=== PATIENT | female | born 1945 | race Caucasian/White ===

== ENCOUNTER 2024-05-08 16:02 | Emergency (ER) | payer MEDICARE, OTHER ==
[~2024-05-08] VITALS: Ht 172.7 cm; Wt 77.0 kg
[2024-05-08 18:56] LABS: Basophils # (auto) 0.1 10 ^3/uL (0-0.2); Basophils % (auto) 0.7 % (0.0-2.0); Eosinophils # (auto) 0 10 ^3/uL (0-0.8); Eosinophils % (auto) 0.1 % (0.0-7.0); Hematocrit 39.2 % (36.0-46.0); Hemoglobin 12.9 g/dL (12.2-16.2); Lymphocytes # (auto) 1.7 10 ^3/uL (0.4-5.4); Lymphocytes % (auto) 20.1 % (10.0-50.0); Mean Corpuscular Hemoglobin 29.5 pg (28.0-32.0); Mean Corpuscular Volume 89.3 fL (80.0-100.0); Monocytes # (auto) 0.4 10 ^3/uL (0-1.3); Monocytes % (auto) 4.4 % (0.0-12.0); Neutrophils # (auto) 6.3 10 ^3/uL (1.6-8.6); Neutrophils % (auto) 74.7 % (37.0-80.0); Nucleated Red Blood Cells % 0.1 %; Red Blood Cells 4.38 10^6/uL (4.0-5.20); Red Cell Distribution Width 19.9 % (11.8-14.3); White Blood Cell 8.4 10^3/uL (4.4-10.8)
[2024-05-08] MEDS: ACETAMINOPHEN 325 MG TAB PO ONE (19:13)
[2024-05-08 19:18] LABS: Alanine Aminotransferase 14 U/L (7-40); Alkaline Phosphatase 141 U/L (46-116); Anion Gap 11 (5-15); Aspartate Aminotransferase 31 U/L (13-40); BUN/Creatinine Ratio 17.8 (10.0-20.0); Bilirubin, Total 0.9 mg/dL (0.2-1.0); Blood Urea Nitrogen 21 mg/dL (9-23); Calcium 9.5 mg/dL (8.5-10.1); Carbon Dioxide 21 mmol/L (20-30); Chloride 104 mmol/L (98-107); Glucose 82 mg/dL (74-106); Potassium 4.7 mmol/L (3.5-5.1); Sodium 136 mmol/L (136-145); Total Protein 7.2 g/dL (5.7-8.2)
[2024-05-08 21:12] LABS: Urine Bacteria FEW /hpf (None Seen); Urine Blood TRACE /uL (Negative); Urine Budding Yeast LOADED /hpf (None Seen); Urine Clarity Turbid (Clear); Urine Color Yellow (Yellow); Urine Hyaline Cast MOD /lpf (0 - 2); Urine Mucus FEW (None Seen); Urine Protein, UAD 1+ (Negative); Urine Urobilinogen 2 mg/dL (Negative); Urine WBC 52 /hpf (0 - 5); Urine pH 6.5 (5.0-9.0)
[2024-05-08] MEDS ORDERED: NITR-52 PO (21:53)
[2024-05-08 23:15] VITALS: BP 110/62; PULSE 80; RESP 17; TEMP 98; O2SAT 95
== END 2024-05-08 23:29 | disposition home or self-care (01) ==
LOC: ER 16:02
DX: N39.0 Urinary tract infection, site not specified (principal); K80.20 Calculus of gallbladder without cholecystitis without obstruction; M13.852 Other specified arthritis, left hip; W18.09XA Striking against other object with subsequent fall, initial encounter; Y93.89 Activity, other specified; Y92.89 Other specified places as the place of occurrence of the external cause; Y99.8 Other external cause status
CPT/HCPCS: 36415; 70450; 74176; 80053; 81001; 82962; 85025

== ENCOUNTER 2024-06-29 17:42 | Inpatient (IN) | payer MEDICARE, OTHER ==
[~2024-06-29] VITALS: Ht 170.2 cm; Wt 71.6 kg
[~2024-06-29 17:42] MED LIST: NITR-52 PO
[2024-06-29 19:03] LABS: Basophils # (auto) 0 10 ^3/uL (0-0.2); Basophils % (auto) 0.4 % (0.0-2.0); Eosinophils # (auto) 0 10 ^3/uL (0-0.8); Eosinophils % (auto) 0.2 % (0.0-7.0); Hematocrit 31.3 % (36.0-46.0); Hemoglobin 10.3 g/dL (12.2-16.2); Lymphocytes # (auto) 0.7 10 ^3/uL (0.4-5.4); Lymphocytes % (auto) 7.5 % (10.0-50.0); Mean Corpuscular Hemoglobin 33.1 pg (28.0-32.0); Mean Corpuscular Hgb Conc. 33.1 g/dL (32.0-36.0); Monocytes # (auto) 0.4 10 ^3/uL (0-1.3); Neutrophils # (auto) 8.6 10 ^3/uL (1.6-8.6); Neutrophils % (auto) 87.9 % (37.0-80.0); Nucleated Red Blood Cells % 0.5 %; Platelet Count (auto) 153 10^3/uL (140-450); Red Blood Cells 3.13 10^6/uL (4.0-5.20); White Blood Cell 9.7 10^3/uL (4.4-10.8)
[2024-06-29 19:11] LABS: Red Cell Distribution Width 21.6 % (11.8-14.3)
[2024-06-29 19:14] LABS: Anion Gap 12 (5-15); Carbon Dioxide 19 mmol/L (20-30); Chloride 108 mmol/L (98-107); Potassium 5.4 mmol/L (3.5-5.1); Sodium 139 mmol/L (136-145)
[2024-06-29 19:15] LABS: Calcium 8.3 mg/dL (8.7-10.4)
[2024-06-29 19:20] LABS: BUN/Creatinine Ratio 21.2 (10.0-20.0); Blood Urea Nitrogen 22 mg/dL (9-23); Glucose 84 mg/dL (74-106)
[2024-06-29 21:32] VITALS: PULSE 86; RESP 99; O2SAT 99
[2024-06-29 23:10] VITALS: PULSE 81; RESP 13; O2SAT 100
[2024-06-29] MEDS ORDERED: HYDROcodone-ACET 5/325MG TAB PO PRN (23:15)
[2024-06-29] MEDS ORDERED: DEXTROSE (50%) 50ML SYRG IV PRN (23:15)
[2024-06-29] MEDS ORDERED: DOCUSATE SOD 100 MG CAP PO PRN (23:15)
[2024-06-29] MEDS ORDERED: ONDANSETRON HCL 4 MG/2 ML VIAL IV PRN (23:15)
[2024-06-29] MEDS ORDERED: ACETAMINOPHEN 325 MG TAB PO PRN (23:15)
[2024-06-29] MEDS: DEXTROSE (50%) 50ML SYRG IV ONE (23:21)
[2024-06-29] MEDS: CALCIUM GLUC 1,000mg/50ml-NS 50 ML IV SCH (23:21)
[2024-06-29] MEDS: SODIUM BICARB 8.4% 50Meq/50ml SYR Vial IV ONE (23:21)
[2024-06-29] MEDS: FUROSEMIDE 20 MG/2 ML VIAL IV ONE (23:23)
[2024-06-29] MEDS: InsuLIN REG 1unit/0.01ml Soln (100units/ml) IV ONE (23:23)
[2024-06-29] MEDS ORDERED: NITROGLYCERIN 0.4 MG SL TAB SL PRN (23:45)
[2024-06-29] MEDS ORDERED: MORPHINE SULFATE INJ 2 MG/ml SYRG IV PRN (23:45)
[2024-06-30] VITALS (7 sets, daily range): BP systolic 111–138; BP diastolic 58–67; PULSE 74–86; RESP 14–22; TEMP 97.6–98.1; O2SAT 2–99
[2024-06-30] MEDS: CALCIUM GLUC 1,000mg/50ml-NS 50 ML IV ONE (00:09)
[2024-06-30 01:41] LABS: Urine Bacteria FEW /hpf (None Seen); Urine Blood Negative /uL (Negative); Urine Clarity Clear (Clear); Urine Color Light-Yellow (Yellow); Urine Protein, UAD Negative (Negative); Urine Specific Gravity 1.016 (1.001-1.035); Urine Urobilinogen Normal (Negative); Urine WBC 10 /hpf (0 - 5)
[2024-06-30] MEDS ORDERED: OXYC-998 PO (02:57)
[2024-06-30] MEDS ORDERED: ZOLP5TAB5 PO (02:57)
[2024-06-30] MEDS ORDERED: ATOR10TA52 PO (02:57)
[2024-06-30] MEDS ORDERED: ONDA-188 PO (02:57)
[2024-06-30] MEDS ORDERED: MET50T PO (02:57)
[2024-06-30] MEDS ORDERED: AMLO1TAB21 PO (02:57)
[2024-06-30] MEDS ORDERED: ASPI81CH59 PO (02:57)
[2024-06-30] MEDS ORDERED: ALPR0.255 PO (02:57)
[2024-06-30] MEDS ORDERED: MIRT1TAB15 PO (02:57)
[2024-06-30] MEDS ORDERED: GLUC-149 (02:57)
[2024-06-30] MEDS ORDERED: ESCI1TAB36 PO (02:57)
[2024-06-30] MEDS ORDERED: METF-370 PO (02:58)
[2024-06-30] MEDS: InsuLIN REG 1unit/0.01ml Soln (100units/ml) SC SCH (06:13)
[2024-06-30] MEDS: SODIUM CHLOR 0.9% PF (SALINE LOCK) 10ML VIAL/SYR IV SCH (06:14)
[2024-06-30] MEDS: ACCU-CHEK COMFORT CURVE STRIP VI SCH (06:14)
[2024-06-30 06:30] LABS: Eosinophils # (auto) 0 10 ^3/uL (0-0.8); Monocytes # (auto) 0.5 10 ^3/uL (0-1.3); Nucleated Red Blood Cells % 0.5 %
[2024-06-30 06:34] LABS: Basophils # (auto) 0 10 ^3/uL (0-0.2); Basophils % (auto) 0.4 % (0.0-2.0); Eosinophils % (auto) 0.1 % (0.0-7.0); Hematocrit 28.5 % (36.0-46.0); Hemoglobin 9.6 g/dL (12.2-16.2); Lymphocytes # (auto) 0.7 10 ^3/uL (0.4-5.4); Lymphocytes % (auto) 8.5 % (10.0-50.0); Mean Corpuscular Hemoglobin 34.1 pg (28.0-32.0); Mean Corpuscular Hgb Conc. 33.5 g/dL (32.0-36.0); Mean Corpuscular Volume 101.8 fL (80.0-100.0); Monocytes % (auto) 5.9 % (0.0-12.0); Neutrophils # (auto) 6.8 10 ^3/uL (1.6-8.6); Neutrophils % (auto) 85.1 % (37.0-80.0); Platelet Count (auto) 140 10^3/uL (140-450); Red Cell Distribution Width 21.6 % (11.8-14.3)
[2024-06-30 06:52] LABS: Alanine Aminotransferase 11 U/L (7-40); Albumin 2.8 g/dL (3.2-4.8); Alkaline Phosphatase 108 U/L (46-116); Anion Gap 16 (5-15); Aspartate Aminotransferase 30 U/L (13-40); BUN/Creatinine Ratio 17.4 (10.0-20.0); Bilirubin, Total 0.5 mg/dL (0.2-1.0); Blood Urea Nitrogen 15 mg/dL (9-23); Calcium 8.5 mg/dL (8.7-10.4); Carbon Dioxide 18 mmol/L (20-30); Chloride 106 mmol/L (98-107); Glucose 67 mg/dL (74-106); Potassium 4.1 mmol/L (3.5-5.1); Sodium 140 mmol/L (136-145); Total Protein 4.9 g/dL (5.7-8.2)
[2024-06-30] MEDS: FUROSEMIDE 20 MG/2 ML VIAL IV SCH (09:33)
[2024-06-30] MEDS: ASPirin 81 mg TAB PO SCH (09:34)
[2024-06-30] MEDS: CARVEDILOL 3.125 MG TAB PO SCH (09:34)
[2024-06-30] MEDS ORDERED: FURO1TAB33 PO (15:11)
[2024-06-30] MEDS ORDERED: ATORVASTATIN 20 MG TAB PO SCH (22:00)
[2024-07-02 08:42] LABS: Hepatitis B Surface Antigen Negative (Negative)
[2024-07-02 09:07] LABS: Hepatitis C Antibody Negative (Negative)
== END 2024-06-30 19:20 | disposition home or self-care (01) | DRG 291 ==
LOC: ER 17:45 → TELE 23:35 → TELE-CENTR 06-30 01:55
PROVIDERS: ADMIT Nurse Practitioner Family; ATTEND Nurse Practitioner Family
DX: I11.0 Hypertensive heart disease with heart failure (principal); I50.31 Acute diastolic (congestive) heart failure; E87.70 Fluid overload, unspecified; E78.5 Hyperlipidemia, unspecified; E11.9 Type 2 diabetes mellitus without complications; E87.5 Hyperkalemia; D53.9 Nutritional anemia, unspecified; Z95.2 Presence of prosthetic heart valve
CPT/HCPCS: 36415; 71046; 80048; 80053; 81001; 82962; 83880; 84484; 85025; 86803; 87086; 87340; 93005; 93306; G0378; J1815

== ENCOUNTER 2024-07-01 17:15 | Inpatient (IN) | payer MEDICARE, OTHER ==
[~2024-07-01] VITALS: Ht 165.1 cm; Wt 93.1 kg
[~2024-07-01 17:15] MED LIST changes: +ALPR0.255 PO; +AMLO1TAB21 PO; +ASPI81CH59 PO; +ATOR10TA52 PO; +ESCI1TAB36 PO; +FURO1TAB33 PO; +GLUC-149; +MET50T PO; +METF-370 PO; +MIRT1TAB15 PO; +ONDA-188 PO; +OXYC-998 PO; +ZOLP5TAB5 PO
[2024-07-01 17:40] VITALS: PULSE 74; RESP 18; O2SAT 98
[2024-07-01] MEDS: SODIUM CHLORIDE 0.9% 1,000 ML IV ONE ×2 (17:44→19:40)
[2024-07-01 18:00] LABS: Basophils # (auto) 0 10 ^3/uL (0-0.2); Basophils % (auto) 0.3 % (0.0-2.0); Eosinophils # (auto) 0 10 ^3/uL (0-0.8); Eosinophils % (auto) 0.1 % (0.0-7.0); Hematocrit 32.4 % (36.0-46.0); Hemoglobin 9.9 g/dL (12.2-16.2); Lymphocytes # (auto) 1.4 10 ^3/uL (0.4-5.4); Lymphocytes % (auto) 14.7 % (10.0-50.0); Mean Corpuscular Hemoglobin 33.2 pg (28.0-32.0); Mean Corpuscular Hgb Conc. 30.5 g/dL (32.0-36.0); Mean Corpuscular Volume 108.7 fL (80.0-100.0); Monocytes # (auto) 0.5 10 ^3/uL (0-1.3); Monocytes % (auto) 5.7 % (0.0-12.0); Neutrophils # (auto) 7.6 10 ^3/uL (1.6-8.6); Neutrophils % (auto) 79.2 % (37.0-80.0); Nucleated Red Blood Cells % 0.5 %; Platelet Count (auto) 126 10^3/uL (140-450); Red Blood Cells 2.97 10^6/uL (4.0-5.20); White Blood Cell 9.5 10^3/uL (4.4-10.8)
[2024-07-01 18:02] LABS: Red Cell Distribution Width 22.7 % (11.8-14.3)
[2024-07-01 18:07] LABS: Chloride 110 mmol/L (98-107); Potassium 4.8 mmol/L (3.5-5.1); Sodium 141 mmol/L (136-145)
[2024-07-01 18:08] LABS: Anion Gap 17 (5-15); Calcium 7.6 mg/dL (8.7-10.4); Carbon Dioxide 14 mmol/L (20-30)
[2024-07-01 18:13] LABS: Blood Urea Nitrogen 22 mg/dL (9-23); Glucose 95 mg/dL (74-106)
[2024-07-01 18:32] LABS: Lactic Acid w/Reflex 6.5 mmol/L (0.4-2.0)
[2024-07-01 19:03] LABS: Base Excess -8.8 mmol/L (-2.0-2.0)
[2024-07-01 19:59] LABS: Basophils # (auto) 0 10 ^3/uL (0-0.2); Basophils % (auto) 0.2 % (0.0-2.0); Eosinophils # (auto) 0 10 ^3/uL (0-0.8); Eosinophils % (auto) 0.1 % (0.0-7.0); Hemoglobin 9.5 g/dL (12.2-16.2); Monocytes # (auto) 0.4 10 ^3/uL (0-1.3); Neutrophils # (auto) 7.9 10 ^3/uL (1.6-8.6); Nucleated Red Blood Cells % 0.3 %
[2024-07-01 20:01] LABS: Hematocrit 29.6 % (36.0-46.0); Lymphocytes # (auto) 1.2 10 ^3/uL (0.4-5.4); Lymphocytes % (auto) 12.8 % (10.0-50.0); Mean Corpuscular Hemoglobin 33.4 pg (28.0-32.0); Mean Corpuscular Hgb Conc. 32.2 g/dL (32.0-36.0); Mean Corpuscular Volume 103.9 fL (80.0-100.0); Monocytes % (auto) 4.2 % (0.0-12.0); Neutrophils % (auto) 82.7 % (37.0-80.0); Platelet Count (auto) 123 10^3/uL (140-450); Red Blood Cells 2.85 10^6/uL (4.0-5.20); White Blood Cell 9.5 10^3/uL (4.4-10.8)
[2024-07-01 20:05] LABS: Red Cell Distribution Width 22.6 % (11.8-14.3)
[2024-07-01 20:18] LABS: Alanine Aminotransferase 16 U/L (7-40); Albumin 2.6 g/dL (3.2-4.8); Alkaline Phosphatase 113 U/L (46-116); Anion Gap 15 (5-15); Aspartate Aminotransferase 36 U/L (13-40); BUN/Creatinine Ratio 15.5 (10.0-20.0); Bilirubin, Total 0.5 mg/dL (0.2-1.0); Blood Urea Nitrogen 15 mg/dL (9-23); Calcium 7.8 mg/dL (8.7-10.4); Carbon Dioxide 16 mmol/L (20-30); Chloride 110 mmol/L (98-107); Glucose 74 mg/dL (74-106); Sodium 141 mmol/L (136-145); Total Protein 4.8 g/dL (5.7-8.2)
[2024-07-01 20:51] LABS: Potassium 5.6 mmol/L (3.5-5.1)
[2024-07-01] MEDS: HALOPERIDOL LACTATE 5 MG/ML INJ VIAL IM PRN (21:16)
[2024-07-01] MEDS: SODIUM ZIRCONIUM CYCL 10 GM PAK PO ONE (21:18)
[2024-07-01] MEDS: ASPirin-EC 81 mg tab PO SCH (21:20)
[2024-07-01] MEDS: SODIUM CHLOR 0.9% PF (SALINE LOCK) 10ML VIAL/SYR IV SCH (21:20)
[2024-07-01 21:36] LABS: Chloride 114 mmol/L (98-107); Potassium 3.8 mmol/L (3.5-5.1); Sodium 144 mmol/L (136-145)
[2024-07-01 21:37] LABS: Anion Gap 16 (5-15); Calcium 6.5 mg/dL (8.7-10.4); Carbon Dioxide 14 mmol/L (20-30)
[2024-07-01 21:42] LABS: BUN/Creatinine Ratio 16.9 (10.0-20.0); Blood Urea Nitrogen 14 mg/dL (9-23); Glucose 65 mg/dL (74-106)
[2024-07-01 21:59] LABS: Urine Bacteria None Seen /hpf (None Seen)
[2024-07-01] MEDS ORDERED: ONDANSETRON HCL PO SCH (22:00)
[2024-07-01 22:24] LABS: Urine Blood Negative /uL (Negative); Urine Budding Yeast FEW /hpf (None Seen); Urine Clarity Clear (Clear); Urine Color Light-Yellow (Yellow); Urine Hyaline Cast FEW /lpf (0 - 2); Urine Protein, UAD Negative (Negative); Urine Urobilinogen Normal (Negative); Urine WBC 5 /hpf (0 - 5)
[2024-07-02] MEDS: SODIUM CHLORIDE 0.9% 1,000 ML IV SCH (01:49)
[2024-07-02] MEDS: ACETAMINOPHEN 325 MG TAB PO PRN (03:34)
[2024-07-02 04:14] LABS: Basophils # (auto) 0 10 ^3/uL (0-0.2); Basophils % (auto) 0.1 % (0.0-2.0); Eosinophils # (auto) 0 10 ^3/uL (0-0.8); Hematocrit 26.7 % (36.0-46.0); Hemoglobin 8.7 g/dL (12.2-16.2); Lymphocytes # (auto) 1.1 10 ^3/uL (0.4-5.4); Lymphocytes % (auto) 10.3 % (10.0-50.0); Mean Corpuscular Hemoglobin 33.8 pg (28.0-32.0); Mean Corpuscular Hgb Conc. 32.7 g/dL (32.0-36.0); Mean Corpuscular Volume 103.1 fL (80.0-100.0); Monocytes # (auto) 0.5 10 ^3/uL (0-1.3); Monocytes % (auto) 5.2 % (0.0-12.0); Neutrophils # (auto) 8.9 10 ^3/uL (1.6-8.6); Neutrophils % (auto) 84.4 % (37.0-80.0); Nucleated Red Blood Cells % 0.1 %; Platelet Count (auto) 114 10^3/uL (140-450); Red Blood Cells 2.59 10^6/uL (4.0-5.20); White Blood Cell 10.6 10^3/uL (4.4-10.8)
[2024-07-02 04:15] LABS: Red Cell Distribution Width 21.7 % (11.8-14.3)
[2024-07-02 04:29] LABS: Alanine Aminotransferase 16 U/L (7-40); Albumin 2.5 g/dL (3.2-4.8); Alkaline Phosphatase 100 U/L (46-116); Anion Gap 20 (5-15); Aspartate Aminotransferase 43 U/L (13-40); BUN/Creatinine Ratio 16.1 (10.0-20.0); Blood Urea Nitrogen 14 mg/dL (9-23); Calcium 7.1 mg/dL (8.7-10.4); Carbon Dioxide 14 mmol/L (20-30); Chloride 110 mmol/L (98-107); Glucose 62 mg/dL (74-106); Potassium 3.9 mmol/L (3.5-5.1); Sodium 144 mmol/L (136-145)
[2024-07-02 04:30] LABS: Bilirubin, Total 0.6 mg/dL (0.2-1.0); Total Protein 4.7 g/dL (5.7-8.2)
[2024-07-02] MEDS: D5W 5% 1,000 ML IV SCH (05:42)
[2024-07-02] MEDS: DEXTROSE (50%) 50ML SYRG IV PRN (05:45)
[2024-07-02] MEDS: ACCU-CHEK COMFORT CURVE STRIP VI SCH (06:02)
[2024-07-02 07:24] VITALS: PULSE 102; RESP 22; O2SAT 100
[2024-07-02] MEDS: Escitalopram Oxalate 10MG TABLETS PO SCH (10:00)
[2024-07-02] MEDS: ENOXAPARIN SOD 40 MG/0.4 ML SYRINGE SC SCH (10:37)
[2024-07-02] MEDS: FUROSEMIDE 20 MG TAB PO SCH (10:37)
[2024-07-02 11:53] LABS: Lactic Acid w/Reflex 2.5 mmol/L (0.4-2.0)
[2024-07-02] MEDS: LORazepam 2MG/ML-1ML VIAL IV ONE (12:21)
[2024-07-02 16:50] LABS: Folate (Folic Acid) 11.95 ng/mL (>5.38)
[2024-07-02] MEDS ORDERED: DEXTROSE 10% 1,000 ML IV SCH (19:45)
[2024-07-02] MEDS: DEXTROSE 10% 1,000 ML IV SCH (20:11)
[2024-07-02 21:14] LABS: Lactic Acid w/Reflex 2.6 mmol/L (0.4-2.0)
[2024-07-02] MEDS: ATORVASTATIN 20 MG TAB PO SCH (22:26)
[2024-07-03] MEDS: HALOPERIDOL LACTATE 5 MG/ML INJ VIAL IM ONE (03:36)
[2024-07-03 06:06] LABS: Alanine Aminotransferase 14 U/L (7-40); Albumin 2.5 g/dL (3.2-4.8); Alkaline Phosphatase 95 U/L (46-116); Anion Gap 13 (5-15); Aspartate Aminotransferase 31 U/L (13-40); BUN/Creatinine Ratio 14.1 (10.0-20.0); Blood Urea Nitrogen 9 mg/dL (9-23); Calcium 6.7 mg/dL (8.7-10.4); Carbon Dioxide 20 mmol/L (20-30); Chloride 106 mmol/L (98-107); Glucose 128 mg/dL (74-106); Potassium 2.7 mmol/L (3.5-5.1); Sodium 139 mmol/L (136-145)
[2024-07-03 06:07] LABS: Bilirubin, Total 0.5 mg/dL (0.2-1.0); Total Protein 4.3 g/dL (5.7-8.2)
[2024-07-03 06:10] LABS: Basophils # (auto) 0 10 ^3/uL (0-0.2); Basophils % (auto) 0.4 % (0.0-2.0); Eosinophils # (auto) 0 10 ^3/uL (0-0.8); Eosinophils % (auto) 0.2 % (0.0-7.0); Hematocrit 25.9 % (36.0-46.0); Hemoglobin 8.6 g/dL (12.2-16.2); Lymphocytes # (auto) 1.3 10 ^3/uL (0.4-5.4); Lymphocytes % (auto) 13.1 % (10.0-50.0); Mean Corpuscular Hemoglobin 33.9 pg (28.0-32.0); Mean Corpuscular Hgb Conc. 33.3 g/dL (32.0-36.0); Mean Corpuscular Volume 101.9 fL (80.0-100.0); Monocytes # (auto) 0.4 10 ^3/uL (0-1.3); Monocytes % (auto) 3.8 % (0.0-12.0); Neutrophils # (auto) 7.9 10 ^3/uL (1.6-8.6); Neutrophils % (auto) 82.5 % (37.0-80.0); Nucleated Red Blood Cells % 0.1 %; Platelet Count (auto) 121 10^3/uL (140-450); Red Blood Cells 2.54 10^6/uL (4.0-5.20); White Blood Cell 9.6 10^3/uL (4.4-10.8)
[2024-07-03 06:11] LABS: Red Cell Distribution Width 21.5 % (11.8-14.3)
[2024-07-03 08:00] VITALS: O2SAT 97
[2024-07-03 09:06] LABS: Triglycerides 129 mg/dL (< 150)
[2024-07-03 09:07] LABS: LDL Cholesterol 18 mg/dL (< 100)
[2024-07-03 09:08] LABS: Cholesterol 79 mg/dL (< 200); HDL Cholesterol 33 mg/dL (40-59)
[2024-07-03] MEDS: LORazepam 2MG/ML-1ML VIAL IV ONE (09:56)
[2024-07-03] MEDS: POTASSIUM CHLORIDE 40 MEQ, LIDOCAINE 1% (LOCAL ANESTH.) 4 ML in SODIUM CHL 0.9% 250 ML IV ONE (14:10)
[2024-07-03] MEDS: DEXTROSE 10% 1,000 ML IV SCH (14:45)
[2024-07-03] MEDS: LORazepam 2MG/ML-1ML VIAL IV PRN (15:30)
[2024-07-03 20:00] VITALS: PULSE 68; RESP 14; O2SAT 99
[2024-07-04] VITALS (20 sets, daily range): BP systolic 94–134; BP diastolic 39–70; PULSE 71–130; RESP 13–22; TEMP 96.3–99.1; O2SAT 10–100
[2024-07-04 06:21] LABS: Alanine Aminotransferase 19 U/L (7-40); Albumin 2.2 g/dL (3.2-4.8); Alkaline Phosphatase 95 U/L (46-116); Anion Gap 12 (5-15); Aspartate Aminotransferase 33 U/L (13-40); Bilirubin, Total 0.6 mg/dL (0.2-1.0); Calcium 6.9 mg/dL (8.7-10.4); Carbon Dioxide 19 mmol/L (20-30); Chloride 108 mmol/L (98-107); Glucose 120 mg/dL (74-106); Potassium 3.2 mmol/L (3.5-5.1); Sodium 139 mmol/L (136-145); Total Protein 4.4 g/dL (5.7-8.2)
[2024-07-04 06:25] LABS: BUN/Creatinine Ratio 11.6 (10.0-20.0); Blood Urea Nitrogen < 5 mg/dL (9-23)
[2024-07-04 07:14] LABS: Basophils # (auto) 0 10 ^3/uL (0-0.2); Basophils % (auto) 0.6 % (0.0-2.0); Eosinophils # (auto) 0.1 10 ^3/uL (0-0.8); Eosinophils % (auto) 0.7 % (0.0-7.0); Hematocrit 28.6 % (36.0-46.0); Hemoglobin 9.7 g/dL (12.2-16.2); Lymphocytes # (auto) 0.8 10 ^3/uL (0.4-5.4); Lymphocytes % (auto) 10.9 % (10.0-50.0); Mean Corpuscular Hemoglobin 33.8 pg (28.0-32.0); Mean Corpuscular Hgb Conc. 33.9 g/dL (32.0-36.0); Mean Corpuscular Volume 99.8 fL (80.0-100.0); Monocytes # (auto) 0.2 10 ^3/uL (0-1.3); Monocytes % (auto) 2.5 % (0.0-12.0); Neutrophils # (auto) 6.5 10 ^3/uL (1.6-8.6); Neutrophils % (auto) 85.3 % (37.0-80.0); Platelet Count (auto) 110 10^3/uL (140-450); Red Blood Cells 2.87 10^6/uL (4.0-5.20); White Blood Cell 7.6 10^3/uL (4.4-10.8)
[2024-07-04 07:23] LABS: Red Cell Distribution Width 21.1 % (11.8-14.3)
[2024-07-04] MEDS ORDERED: POTASSIUM CHL 20 Meq TABLET PO ONE (10:30)
[2024-07-04] MEDS: POTASSIUM EFFERVESENT TAB 25 MEQ PO ONE (12:00)
[2024-07-04] MEDS: HYDROcodone-ACET 5/325MG TAB PO PRN (14:59)
[2024-07-04] MEDS: MAGNESIUM SULFATE 1GM/100ML 100 ML IV SCH ×2 (15:41→21:18)
[2024-07-04 20:23] LABS: Potassium 3.4 mmol/L (3.5-5.1)
[2024-07-04 20:29] LABS: Magnesium 1.3 mg/dL (1.6-2.6)
[2024-07-04] MEDS: POTASSIUM CHL 20 Meq TABLET PO ONE (21:18)
[2024-07-04] MEDS: METOPROLOL TARTRATE 50 MG TAB PO ONE (21:20)
[2024-07-05] VITALS (38 sets, daily range): BP systolic 79–206; BP diastolic 35–170; PULSE 78–150; RESP 13–50; TEMP 97.2–100.9; O2SAT 66–100
[2024-07-05 05:51] LABS: Basophils # (auto) 0 10 ^3/uL (0-0.2); Basophils % (auto) 0.5 % (0.0-2.0); Eosinophils # (auto) 0 10 ^3/uL (0-0.8); Eosinophils % (auto) 0.1 % (0.0-7.0); Hematocrit 27.2 % (36.0-46.0); Hemoglobin 9.3 g/dL (12.2-16.2); Lymphocytes # (auto) 0.9 10 ^3/uL (0.4-5.4); Mean Corpuscular Hemoglobin 33.8 pg (28.0-32.0); Mean Corpuscular Hgb Conc. 34.1 g/dL (32.0-36.0); Mean Corpuscular Volume 99.1 fL (80.0-100.0); Monocytes # (auto) 0.3 10 ^3/uL (0-1.3); Neutrophils # (auto) 6.6 10 ^3/uL (1.6-8.6); Neutrophils % (auto) 83.4 % (37.0-80.0); Nucleated Red Blood Cells % 0.6 %; Platelet Count (auto) 115 10^3/uL (140-450); Red Blood Cells 2.74 10^6/uL (4.0-5.20); White Blood Cell 7.9 10^3/uL (4.4-10.8)
[2024-07-05 05:58] LABS: Anion Gap 8 (5-15); Carbon Dioxide 25 mmol/L (20-30); Chloride 104 mmol/L (98-107); Potassium 4.3 mmol/L (3.5-5.1); Sodium 137 mmol/L (136-145)
[2024-07-05 06:04] LABS: INR 1.08 (0.9-1.15); Partial Thromboplastin Time 34.2 SEC (24.5-34.5); Prothrombin Time 11.4 sec (9.3-11.8)
[2024-07-05 06:05] LABS: BUN/Creatinine Ratio 13.7 (10.0-20.0); Blood Urea Nitrogen 7 mg/dL (9-23); Glucose 106 mg/dL (74-106)
[2024-07-05 08:06] LABS: Haptoglobin <10 mg/dL (42-346)
[2024-07-05] MEDS: POTASSIUM EFFERVESENT TAB 25 MEQ PO SCH (08:18)
[2024-07-05] MEDS ORDERED: POTASSIUM CHL 20 Meq TABLET PO SCH (10:00)
[2024-07-05] MEDS: CITALOPRAM HYDROBR 20 MG TAB PO SCH (11:07)
[2024-07-05] MEDS: MAGNESIUM SULFATE 1GM/100ML 100 ML IV SCH (11:07)
[2024-07-05 12:07] LABS: Albumin 2.2 g/dL (2.9-4.4); Alpha-1-Globulin 0.3 g/dL (0.0-0.4); Alpha-2-Globulin 0.6 g/dL (0.4-1.0); Gamma Globulin 0.8 g/dL (0.4-1.8); Globulin Total 2.7 g/dL (2.2-3.9); Protein Total Serum 4.9 g/dL (6.0-8.5)
[2024-07-05 13:07] LABS: Anti-Nuclear Antibody Direct Negative (Negative)
[2024-07-05] MEDS: ONDANSETRON HCL 4 MG/2 ML VIAL IV PRN (13:16)
[2024-07-05] MEDS: SODIUM CHLORIDE 0.9% 250 ML IV ONE (14:30)
[2024-07-05] MEDS: DOCUSATE SOD 100 MG CAP PO PRN (15:37)
[2024-07-05] MEDS: NOREPINEPHRINE 8 MG/250ML KIT 250 ML IV SCH (18:36)
[2024-07-05] MEDS ORDERED: ACETAMINOPHEN 650 MG RECT SUPP PR PRN (21:30)
[2024-07-05] MEDS: dilTIAZem 25 MG/5 ML VIAL IV ONE (22:24)
[2024-07-06] VITALS (65 sets, daily range): BP systolic 74–201; BP diastolic 34–152; PULSE 87–154; RESP 12–49; TEMP 95.4–101.1; O2SAT 92–100
[2024-07-06] LABS: Hematocrit 23.6 % (36.0-46.0)
[2024-07-06] MEDS: SODIUM BICARB 8.4% 50Meq/50ml SYR Vial IV ONE ×3 (00:21→09:16)
[2024-07-06] MEDS: SODIUM BICARB 50mEq/50ml Vial 150 ML in D5W 5% 1,000 ML IV SCH (01:18)
[2024-07-06] MEDS: SODIUM BICARB 8.4% 50Meq/50ml SYR INJ ONE (01:19)
[2024-07-06 04:33] LABS: Basophils # (auto) 0 10 ^3/uL (0-0.2); Basophils % (auto) 0.1 % (0.0-2.0); Eosinophils # (auto) 0 10 ^3/uL (0-0.8); Hematocrit 21.2 % (36.0-46.0); Lymphocytes # (auto) 0.7 10 ^3/uL (0.4-5.4); Mean Corpuscular Hemoglobin 33.6 pg (28.0-32.0); Mean Corpuscular Hgb Conc. 31.1 g/dL (32.0-36.0); Mean Corpuscular Volume 108.1 fL (80.0-100.0); Monocytes # (auto) 0.3 10 ^3/uL (0-1.3); Monocytes % (auto) 1.9 % (0.0-12.0); Nucleated Red Blood Cells % 0.4 %; Platelet Count (auto) 102 10^3/uL (140-450); Red Blood Cells 1.96 10^6/uL (4.0-5.20); Red Cell Distribution Width 21.6 % (11.8-14.3)
[2024-07-06 04:35] LABS: Hemoglobin 6.6 g/dL (12.2-16.2)
[2024-07-06 07:20] LABS: Hemoglobin 8.1 g/dL (12.2-16.2)
[2024-07-06 07:22] LABS: Hematocrit 26.8 % (36.0-46.0)
[2024-07-06 07:33] LABS: Chloride 104 mmol/L (98-107); Potassium 4.9 mmol/L (3.5-5.1); Sodium 138 mmol/L (136-145)
[2024-07-06 07:36] LABS: Anion Gap 20 (5-15); Calcium 7.5 mg/dL (8.7-10.4); Carbon Dioxide 14 mmol/L (20-30)
[2024-07-06 07:37] LABS: INR 1.3 (0.9-1.15); Partial Thromboplastin Time 36.7 SEC (24.5-34.5); Prothrombin Time 13.5 sec (9.3-11.8)
[2024-07-06 07:41] LABS: BUN/Creatinine Ratio 18.6 (10.0-20.0); Glucose 301 mg/dL (74-106)
[2024-07-06 07:45] LABS: Blood Urea Nitrogen 24 mg/dL (9-23)
[2024-07-06 07:46] LABS: Lactic Acid w/Reflex 15.5 mmol/L (0.4-2.0)
[2024-07-06 07:47] LABS: Base Excess -8.6 mmol/L (-2.0-2.0)
[2024-07-06] MEDS ORDERED: VANCOMYCIN PER PHARMACY 0 MG IV SCH (08:00)
[2024-07-06] MEDS: CLOPIDOGREL BISULFATE 75 MG TAB PO SCH (10:00)
[2024-07-06] MEDS: VANCOMYCIN 1GM/200ML 200 ML IV ONE (10:23)
[2024-07-06] MEDS: cefTRIAXone 1GM/50ML D5W 50 ML IV SCH (11:57)
[2024-07-06] MEDS: PANTOPRAZOLE 40 MG/10 ML VIAL INJ IV SCH (11:57)
[2024-07-06 12:15] LABS: Base Excess 4.6 mmol/L (-2.0-2.0)
[2024-07-06] MEDS ORDERED: DEXTROSE (50%) 50ML SYRG IV PRN (13:15)
[2024-07-06] MEDS ORDERED: CLINIMIX PER PHARMACY 0 ML IV SCH (13:45)
[2024-07-06] MEDS ORDERED: metroNIDAZOLE 500MG/100ML 100 ML IV ONE (13:45)
[2024-07-06] MEDS ORDERED: PANTOPRAZOLE 40 MG/10 ML VIAL INJ IV ONE (13:45)
[2024-07-06 13:46] LABS: Hematocrit 22.2 % (36.0-46.0); Hemoglobin 7.4 g/dL (12.2-16.2)
[2024-07-06] MEDS: ACETAMINOPHEN 325 MG TAB PO PRN (13:59)
[2024-07-06] MEDS: PIPERACILLIN-TAZOB 3.375GM 100 ML IV SCH (14:00)
[2024-07-06] MEDS: metroNIDAZOLE 500MG/100ML 100 ML IV SCH (14:00)
[2024-07-06] MEDS: SODIUM CHLORIDE 0.9% 500 ML IV ONE (15:16)
[2024-07-06] MEDS: PANTOPRAZOLE 40 MG/10 ML VIAL INJ IV ONE (15:26)
[2024-07-06] MEDS: LIDOCAINE 1% (LOCAL ANESTH.) PF 5ml SDV ID ONE (16:37)
[2024-07-06] MEDS: PANTOPRAZOLE 40mg/50ML NS AE 50 ML IV SCH (17:58)
[2024-07-06] MEDS: InsuLIN REG 1unit/0.01ml Soln (100units/ml) SC SCH (18:00)
[2024-07-06] MEDS: ACCU-CHEK COMFORT CURVE STRIP VI SCH (18:06)
[2024-07-06] MEDS: SODIUM CHLOR 0.9% PF (SALINE LOCK) 10ML VIAL/SYR IV SCH (20:52)
[2024-07-07] VITALS (54 sets, daily range): BP systolic 86–151; BP diastolic 29–125; PULSE 94–118; RESP 11–23; TEMP 97.7–98.7; O2SAT 78–100
[2024-07-07 03:04] LABS: Hematocrit 21.7 % (36.0-46.0); Hemoglobin 7.4 g/dL (12.2-16.2)
[2024-07-07 03:18] LABS: % Iron Saturation 51.5 % (15-50)
[2024-07-07 03:22] LABS: Lactic Acid w/Reflex 2.5 mmol/L (0.4-2.0)
[2024-07-07 05:57] LABS: Hemoglobin 7.2 g/dL (12.2-16.2)
[2024-07-07 06:01] LABS: Hematocrit 21.1 % (36.0-46.0)
[2024-07-07] MEDS ORDERED: CLINIMIX PER PHARMACY 0 ML IV SCH (08:45)
[2024-07-07 09:05] LABS: Alanine Aminotransferase 42 U/L (7-40); Alkaline Phosphatase 75 U/L (46-116); Anion Gap 3 (5-15); Aspartate Aminotransferase 140 U/L (13-40); BUN/Creatinine Ratio 29.3 (10.0-20.0); Blood Urea Nitrogen 24 mg/dL (9-23); Calcium 6.7 mg/dL (8.7-10.4); Carbon Dioxide 32 mmol/L (20-30); Chloride 108 mmol/L (98-107); Glucose 117 mg/dL (74-106); Magnesium 1.8 mg/dL (1.6-2.6); Potassium 3.3 mmol/L (3.5-5.1); Sodium 143 mmol/L (136-145)
[2024-07-07 09:06] LABS: Bilirubin, Total 0.7 mg/dL (0.2-1.0); Phosphorus 2.4 mg/dL (2.4-5.1); Total Protein 3.6 g/dL (5.7-8.2)
[2024-07-07] MEDS: VANCOMYCIN 750mg/150ml 150 ML IV SCH (11:11)
[2024-07-07] MEDS: POTASSIUM PHOSPHATE 26.4 MEQ in SODIUM CHL 0.9% 100 ML IV ONE (11:22)
[2024-07-07 12:00] LABS: Basophils # (auto) 0 10 ^3/uL (0-0.2); Eosinophils # (auto) 0 10 ^3/uL (0-0.8); Hematocrit 21.4 % (36.0-46.0); Hemoglobin 7.2 g/dL (12.2-16.2); Lymphocytes # (auto) 0.3 10 ^3/uL (0.4-5.4); Lymphocytes % (auto) 3.4 % (10.0-50.0); Mean Corpuscular Hemoglobin 31.7 pg (28.0-32.0); Mean Corpuscular Hgb Conc. 33.5 g/dL (32.0-36.0); Mean Corpuscular Volume 94.8 fL (80.0-100.0); Monocytes # (auto) 0.2 10 ^3/uL (0-1.3); Monocytes % (auto) 2.1 % (0.0-12.0); Neutrophils # (auto) 9.6 10 ^3/uL (1.6-8.6); Neutrophils % (auto) 94.5 % (37.0-80.0); Nucleated Red Blood Cells % 0.1 %; Platelet Count (auto) 69 10^3/uL (140-450); Red Blood Cells 2.26 10^6/uL (4.0-5.20); Red Cell Distribution Width 19.4 % (11.8-14.3); White Blood Cell 10.1 10^3/uL (4.4-10.8)
[2024-07-07 18:12] LABS: Hematocrit 20.6 % (36.0-46.0)
[2024-07-07] MEDS: SODIUM CHLORIDE 0.9% 1,000 ML IV SCH (18:12)
[2024-07-07 18:20] LABS: Hemoglobin 6.9 g/dL (12.2-16.2)
[2024-07-07] MEDS: AMINO ACID INFUSION IN D10W 1,000 ML IV SCH (20:44)
[2024-07-08] VITALS (17 sets, daily range): BP systolic 86–114; BP diastolic 37–77; PULSE 85–106; RESP 12–37; TEMP 97.8–98.4; O2SAT 95–100
[2024-07-08 00:41] LABS: Hematocrit 18.3 % (36.0-46.0)
[2024-07-08 07:07] LABS: Alanine Aminotransferase 41 U/L (7-40); Albumin 1.9 g/dL (3.2-4.8); Alkaline Phosphatase 67 U/L (46-116); Anion Gap 8 (5-15); Aspartate Aminotransferase 65 U/L (13-40); BUN/Creatinine Ratio 26.3 (10.0-20.0); Blood Urea Nitrogen 20 mg/dL (9-23); Carbon Dioxide 28 mmol/L (20-30); Chloride 107 mmol/L (98-107); Glucose 158 mg/dL (74-106); Magnesium 1.6 mg/dL (1.6-2.6); Phosphorus 1.7 mg/dL (2.4-5.1); Potassium 2.6 mmol/L (3.5-5.1); Sodium 143 mmol/L (136-145)
[2024-07-08 07:08] LABS: Bilirubin, Total 0.6 mg/dL (0.2-1.0); Total Protein 3.4 g/dL (5.7-8.2)
[2024-07-08 07:13] LABS: Basophils # (auto) 0 10 ^3/uL (0-0.2); Basophils % (auto) 0.2 % (0.0-2.0); Eosinophils # (auto) 0 10 ^3/uL (0-0.8); Eosinophils % (auto) 0.1 % (0.0-7.0); Hematocrit 18.4 % (36.0-46.0); Lymphocytes # (auto) 0.6 10 ^3/uL (0.4-5.4); Lymphocytes % (auto) 6.8 % (10.0-50.0); Mean Corpuscular Hemoglobin 32.4 pg (28.0-32.0); Mean Corpuscular Hgb Conc. 33.9 g/dL (32.0-36.0); Mean Corpuscular Volume 95.6 fL (80.0-100.0); Monocytes # (auto) 0.3 10 ^3/uL (0-1.3); Monocytes % (auto) 3.1 % (0.0-12.0); Neutrophils # (auto) 7.7 10 ^3/uL (1.6-8.6); Neutrophils % (auto) 89.8 % (37.0-80.0); Nucleated Red Blood Cells % 0.3 %; Platelet Count (auto) 54 10^3/uL (140-450); Red Blood Cells 1.92 10^6/uL (4.0-5.20); Red Cell Distribution Width 19.8 % (11.8-14.3); White Blood Cell 8.6 10^3/uL (4.4-10.8)
[2024-07-08 07:17] LABS: Hemoglobin 6.2 g/dL (12.2-16.2)
[2024-07-08 07:44] LABS: Calcium 5.4 mg/dL (8.7-10.4)
[2024-07-08] MEDS: POTASSIUM CHL 20MEQ/100ML 100 ML IV SCH (10:18)
[2024-07-08] MEDS: MAGNESIUM SULFATE 1GM/100ML 100 ML IV SCH (10:19)
[2024-07-08] MEDS: CALCIUM GLUC 1,000mg/50ml-NS 50 ML IV ONE (10:19)
[2024-07-08] MEDS: POTASSIUM PHOSPHATE 44 MEQ in D5W 5% 250 ML IV ONE (14:23)
[2024-07-09] VITALS (7 sets, daily range): BP systolic 92–117; BP diastolic 45–58; PULSE 100–113; RESP 16–18; TEMP 98.1–98.2; O2SAT 91–99
[2024-07-09] MEDS ORDERED: MIDAZOLAM HCL 5 MG/ML-1ML VIAL ONE (08:44)
[2024-07-09] MEDS ORDERED: LIDOCAINE VISCOUS 2% 15ML UD ONE (08:44)
[2024-07-09] MEDS ORDERED: SODIUM CHLORIDE LOCK 10 ML ONE (08:44)
[2024-07-09] MEDS ORDERED: diphenhdrAMINE HCL 50 MG/1 ML VL ONE (08:45)
[2024-07-09] MEDS ORDERED: fentaNYL CITRATE 100 MCG/2 ML VL ONE (08:45)
[2024-07-09 09:24] LABS: Alanine Aminotransferase 56 U/L (7-40); Alkaline Phosphatase 74 U/L (46-116); Anion Gap 8 (5-15); BUN/Creatinine Ratio 19.2 (10.0-20.0); Blood Urea Nitrogen 15 mg/dL (9-23); Carbon Dioxide 24 mmol/L (20-30); Chloride 107 mmol/L (98-107); Glucose 122 mg/dL (74-106); Magnesium 1.8 mg/dL (1.6-2.6); Potassium 2.7 mmol/L (3.5-5.1); Sodium 139 mmol/L (136-145)
[2024-07-09 09:25] LABS: Albumin 1.9 g/dL (3.2-4.8)
[2024-07-09 09:26] LABS: Aspartate Aminotransferase 41 U/L (13-40); Bilirubin, Total 0.7 mg/dL (0.2-1.0); Phosphorus 2.3 mg/dL (2.4-5.1); Total Protein 3.6 g/dL (5.7-8.2)
[2024-07-09 09:36] LABS: Calcium 5.4 mg/dL (8.7-10.4)
[2024-07-09] MEDS: CALCIUM GLUC 1,000mg/50ml-NS 50 ML IV ONE (12:02)
[2024-07-09] MEDS: IRON SUCROSE COMPLEX 100 ML IV SCH (12:05)
[2024-07-09] MEDS: POTASSIUM EFFERVESENT TAB 25 MEQ PO ONE (12:05)
[2024-07-09] MEDS: MAGNESIUM SULFATE 1GM/100ML 100 ML IV SCH (12:05)
[2024-07-09] MEDS ORDERED: MORPHINE SULFATE INJ 2 MG/ml SYRG IV PRN (12:30)
[2024-07-09] MEDS ORDERED: HYDROcodone-ACET 5/325MG TAB PO PRN (12:30)
[2024-07-09] MEDS ORDERED: CALCIUM GLUC 1,000mg/50ml-NS 50 ML IV ONE (13:00)
[2024-07-09] MEDS ORDERED: POTASSIUM PHOSPHATE 44 MEQ in D5W 5% 250 ML IV ONE (14:00)
[2024-07-09] MEDS ORDERED: POTASSIUM CHL 20MEQ/100ML 100 ML IV SCH (22:00)
[2024-07-10 01:00] VITALS: BP 106/50; PULSE 102; RESP 20; TEMP 98.2; O2SAT 94
[2024-07-10 05:00] VITALS: BP 100/50; PULSE 107; RESP 18; TEMP 98.7; O2SAT 94
[2024-07-10 06:32] LABS: Basophils # (auto) 0 10 ^3/uL (0-0.2); Eosinophils # (auto) 0 10 ^3/uL (0-0.8); Eosinophils % (auto) 0.2 % (0.0-7.0); Lymphocytes # (auto) 0.9 10 ^3/uL (0.4-5.4); Mean Corpuscular Hemoglobin 32.5 pg (28.0-32.0); Monocytes # (auto) 0.4 10 ^3/uL (0-1.3); Neutrophils # (auto) 6.9 10 ^3/uL (1.6-8.6); Nucleated Red Blood Cells % 1.2 %
[2024-07-10 06:34] LABS: Basophils % (auto) 0.1 % (0.0-2.0); Hematocrit 20.8 % (36.0-46.0); Lymphocytes % (auto) 10.9 % (10.0-50.0); Mean Corpuscular Hgb Conc. 33.7 g/dL (32.0-36.0); Mean Corpuscular Volume 96.5 fL (80.0-100.0); Monocytes % (auto) 4.5 % (0.0-12.0); Neutrophils % (auto) 84.3 % (37.0-80.0); Red Blood Cells 2.15 10^6/uL (4.0-5.20); White Blood Cell 8.1 10^3/uL (4.4-10.8)
[2024-07-10 06:35] LABS: Chloride 106 mmol/L (98-107); Potassium 3.2 mmol/L (3.5-5.1); Sodium 136 mmol/L (136-145)
[2024-07-10 06:36] LABS: Anion Gap 8 (5-15); Calcium 6.4 mg/dL (8.7-10.4); Carbon Dioxide 22 mmol/L (20-30)
[2024-07-10 06:41] LABS: BUN/Creatinine Ratio 15.6 (10.0-20.0); Blood Urea Nitrogen 12 mg/dL (9-23); Glucose 113 mg/dL (74-106)
[2024-07-10 06:42] LABS: Magnesium 2.3 mg/dL (1.6-2.6)
[2024-07-10 06:47] LABS: Platelet Count (auto) 42 10^3/uL (140-450)
[2024-07-10 08:00] VITALS: RESP 20; O2SAT 97
[2024-07-10 08:17] VITALS: BP 98/43; PULSE 100; RESP 20; TEMP 98.2; O2SAT 97
[2024-07-10 12:51] VITALS: BP 97/52; PULSE 103; RESP 20; TEMP 98.4; O2SAT 97
[2024-07-10] MEDS: POTASSIUM EFFERVESENT TAB 25 MEQ PO ONE ×2 (13:15→14:37)
[2024-07-10 13:16] VITALS: BP 97/52; PULSE 103; RESP 20; TEMP 98.4; O2SAT 97
== END 2024-07-10 17:15 | disposition hospice, home (50) | DRG 871 ==
LOC: EDBD 17:15 → ER 17:15 → TELE 18:32 → UNDOADMIN 18:32 → DOU 18:48 → DOU IN ICU 18:57 → TELE 22:10 → DOU IN ICU 07-04 04:14 → ICU CENTRL 07-05 18:40 → ICU WEST 07-06 02:51 → CENTRAL 07-08 20:40 → WEST WING 07-08 22:10
PROVIDERS: ADMIT Internal Medicine; ATTEND Internal Medicine
PROC: 30233K1 Transfusion of Nonautologous Frozen Plasma into Peripheral Vein, Percutaneous Approach (ICD-10-PCS; principal; 2024-07-06)
PROC: 30233N1 Transfusion of Nonautologous Red Blood Cells into Peripheral Vein, Percutaneous Approach (ICD-10-PCS; 2024-07-06)
PROC: 05HC33Z Insertion of Infusion Device into Left Basilic Vein, Percutaneous Approach (ICD-10-PCS; 2024-07-06)
PROC: B54NZZA Ultrasonography of Left Upper Extremity Veins, Guidance (ICD-10-PCS; 2024-07-06)
PROC: 02HV33Z Insertion of Infusion Device into Superior Vena Cava, Percutaneous Approach (ICD-10-PCS; 2024-07-06)
PROC: B548ZZA Ultrasonography of Superior Vena Cava, Guidance (ICD-10-PCS; 2024-07-06)
DX: A41.59 Other Gram-negative sepsis (principal); E43 Unspecified severe protein-calorie malnutrition; I63.9 Cerebral infarction, unspecified; G92.8 Other toxic encephalopathy; R65.21 Severe sepsis with septic shock; I50.43 Acute on chronic combined systolic (congestive) and diastolic (congestive) heart failure; R57.1 Hypovolemic shock; R57.8 Other shock; E87.20 Acidosis, unspecified; G93.1 Anoxic brain damage, not elsewhere classified; N39.0 Urinary tract infection, site not specified; K92.2 Gastrointestinal hemorrhage, unspecified; E11.649 Type 2 diabetes mellitus with hypoglycemia without coma; E78.5 Hyperlipidemia, unspecified; D53.9 Nutritional anemia, unspecified; D69.6 Thrombocytopenia, unspecified; I11.0 Hypertensive heart disease with heart failure; I34.81 Nonrheumatic mitral (valve) annulus calcification; K80.20 Calculus of gallbladder without cholecystitis without obstruction; L89.899 Pressure ulcer of other site, unspecified stage; D46.9 Myelodysplastic syndrome, unspecified; D50.0 Iron deficiency anemia secondary to blood loss (chronic); B96.1 Klebsiella pneumoniae [K. pneumoniae] as the cause of diseases classified elsewhere; Z79.82 Long term (current) use of aspirin; Z79.02 Long term (current) use of antithrombotics/antiplatelets; Z51.5 Encounter for palliative care; Z95.2 Presence of prosthetic heart valve; Z82.5 Family history of asthma and other chronic lower respiratory diseases; Z82.0 Family history of epilepsy and other diseases of the nervous system; Z80.1 Family history of malignant neoplasm of trachea, bronchus and lung; Z68.34 Body mass index [BMI] 34.0-34.9, adult
CPT/HCPCS: 36415; 36569; 36600; 70450; 70551; 71045; 71250; 74176; 80048; 80053; 80061; 80202; 81001; 82140; 82270; 82607; 82746; 82805; 82962; 83010; 83540; 83550; 83605; 83615; 83735; 83880; 83986; 84100; 84132; 84155; 84165; 84443; 85014; 85018; 85025; 85045; 85048; 85610; 85730; 86038; 86850; 86880; 86900; 86901; 86920; 87040; 87045; 87081; 87086; 87088; 87186; 93005; 93886; 93970; 95819; 97163; 99291; G0378; J1756; J2001; J2250; J2405; J2470; J2543; J3480; J3490; J7060